=== PATIENT | female | born 1995 | race Caucasian/White ===

== ENCOUNTER 2023-06-18 13:58 | Emergency (ER) | payer OTHER ==
[~2023-06-18] VITALS: Ht 175.3 cm; Wt 86.2 kg
[2023-06-18 14:09] VITALS: BP_SYST 141; PULSE 105; RESP 18; TEMP 98.3; O2SAT 95
[2023-06-18] MEDS ORDERED: HYDROcodone/ACETAMIN 5-325 MG TAB (NORCO/ VICODIN) PO ONE (14:45)
[2023-06-18] MEDS ORDERED: KETOROLAC TROMETHAMINE 60 MG/2 ML VIAL IM ONE (14:45)
[2023-06-18] MEDS ORDERED: LIDOCAINE 1% 10 MG/ML, 20 ML MDV INJ ONE (15:15)
[2023-06-18] MEDS ORDERED: IBUP-1971 PO (16:32)
[2023-06-18] MEDS ORDERED: HYDR-3917 PO (16:32)
[2023-06-18 17:01] VITALS: BP_SYST 125; PULSE 77; RESP 16; TEMP 98.3; O2SAT 97
== END 2023-06-18 17:04 | disposition home or self-care (01) ==
LOC: SED 13:58
DX: N75.1 Abscess of Bartholin's gland (principal); Z79.899 Other long term (current) drug therapy
CPT/HCPCS: 99284; 56405; 87070; 96372; J1885; J2001